=== PATIENT | female | born 1980 | race Caucasian/White ===

== ENCOUNTER 2018-12-04 12:36 | Emergency (ER) | payer SELFPAY ==
[2018-12-04] MEDS ORDERED: ONDANSETRON 4 MG/2 ML VIAL IVP ONE (13:07)
[2018-12-04] MEDS ORDERED: KETOROLAC 30 MG/1 ML SDV IVP ONE (13:07)
[2018-12-04] MEDS ORDERED: NS 1,000 ML IV ONE (13:07)
--- NOTE | 2018-12-04 13:07 | EDPHY ---
H & P Stated Complaint: bilat flank pain/burning freq nausea Source: Patient Exam Limitations: No limitations - Personal History LMP (Females 10-55): Hysterectomy Current Tetanus Diphtheria and Acellular Pertussis (TDAP): Yes - Medical/Surgical History Hx Asthma: No Hx Chronic Respiratory Disease: No Hx Diabetes: No Hx Cardiac Disease: No Hx Renal Disease: No Hx Cirrhosis: No Hx Alcoholism: No Hx HIV/AIDS: No Hx Splenectomy or Spleen Trauma: No Other PMH: hysterectomy pyelonephritis - Social History Smoking Status: Never smoked Time Seen by Provider: 12/04/18 12:59 HPI/ROS: HPI: This is a 38-year-old female who presents with Chief Complaint: bilateral flank pain/urinary burning freq/nausea Location: Flank Quality: Pain Duration: 3-4 days Signs and Symptoms: no fever, + nausea, no vomiting, no hematemesis, no blood in stool, no abdominal bloating, no diarrhea, no back pain, + urinary burning, + urinary frequency, no vaginal bleeding/discharge, no indigestion, no chest pain, no shortness of breath Timing: Slowly worsening Severity: Moderate Context: Patient presents at the urging of her primary care provider for complaints of urinary frequency and burning for the last 10 days and concern for pyelonephritis. Patient reports that she has bilateral flank pain, malaise , nausea. She feels the same way that she did when she had her previous " kidney infection." Able to eat and drink without any difficulty. Took Diflucan 1 week ago. No antibiotics in the last 3 months. Modifying Factors: Taking azo since Tuesday Comment: ROS: A comprehensive 10 system review of systems is otherwise negative aside from elements mentioned in the history of present illness. MEDICAL/SURGICAL/SOCIAL HISTORY: Medical history: Recurrent urinary tract infections, pyelonephritis, candidiasis vaginitis, postmenopausal Surgical history: Hysterectomy Social history: Has 5 living children. Family history noncontributory. CONSTITUTIONAL: Extremely well-appearing adult white female, awake and alert, no obvious distress HEENT: Atraumatic and normocephalic, PERRL, EOMI. Nares patent; no rhinorrhea; no nasal mucosal edema. Tympanic membranes clear. Oropharynx clear, no exudate and moist pink mucosa. Airway patent. No lymphadenopathy. No meningismus. Cardiovascular: Normal S1/S2, regular rate, regular rhythm, without murmur rub or gallop. PULMONARY/CHEST: Symmetrical and nontender. Clear to auscultation bilaterally. Good air movement. No accessory muscle usage. ABDOMEN: Soft, nondistended, nontender, no rebound, no guarding, no peritoneal signs, no masses or organomegaly. No CVAT. EXTREMITIES: 2/2 pulses, strength 5/5, no deformities, no clubbing, no cyanosis or edema. NEUROLOGICAL: no focal neuro deficits. GCS 15. SKIN: Warm and dry, no erythema. no rash. Good capillary refill. (Lupe Gudino) Constitutional: Initial Vital Signs Temperature (C) 36.6 C 12/04/18 12:40 Heart Rate 60 12/04/18 12:40 Respiratory Rate 18 12/04/18 12:40 Blood Pressure 110/67 12/04/18 12:40 O2 Sat (%) 99 12/04/18 12:40 O2 Delivery Mode Room Air Allergies/Adverse Reactions: morphine Allergy (Verified 12/04/18 12:39) nitrofurantoin [From Macrobid] Allergy (Verified 12/04/18 12:39) Home Medications: Medication Instructions Recorded Azo Urinary Pain Relief 12/04/18 Ciprofloxacin [Cipro] 500 mg PO BID 10 Days #20 tab 12/04/18 Fluconazole [Diflucan (*)] 150 mg PO ONCE #1 tab 12/04/18 Ondansetron Odt [Zofran Odt 4 mg 4 mg PO Q4 PRN #12 tab 12/04/18 (*)] Medical Decision Making - Diagnostics Imaging Results: Imaging Impressions Abdomen/Pelvis Ultrasound 12/04/18 13:08 Impression: 1. Trace prevoid pelvicaliectasis on the right which resolved following voiding. No evidence of obstructive hydronephrosis. Lupe Gudino was notified of these findings by telephone at 2:31 PM on 12/04/2018 ED Course/Re-evaluation: Vital signs reviewed and stable upon arrival. No systemic signs. IV access, laboratory studies, urinalysis, retroperitoneal ultrasound ordered Given 1 L normal saline, IV Zofran 4 mg 1345: Urinalysis shows positive nitrates, 1+ LE, 50-100 WBCs and; 1+ bacteria; sent for urine culture; given 1 g Rocephin 1348: Laboratory studies show WBC of 11 K with left shift. Creatinine 0.6 No signs of anemia/platelet dysfunction/ROSALBA/elevated LFTs/electrolyte imbalance/ pancreatitis/. 1434: Called by Radiologist, Dr. Donahue, who reports retroperitoneal ultrasound shows trace right hydronephrosis that resolves postvoid but no signs of abscess. Discussion with patient that I recommend admission for IV antibiotics, IV fluids until urine culture results but she politely declines. She has no signs of sepsis, tolerating p.o. and is of healthy immunocompetent patient. Given a prescription for Cipro, Diflucan x1 and Zofran as needed Patient understands that she is to return if symptoms are not improving over the next 2-3 days. This patient was seen under the supervision of my secondary supervising physician. I evaluated and cared for this patient with attending. (Lupe Gudino) I did not see this patient while she was in the emergency department. However her care was discussed with the PA while the patient was in the department. I agree with treatment plan and management (Raul Reed) Differential Diagnosis: Abdominal pain in a female including but not limited to ovarian cyst, pelvic inflammatory disease, ovarian torsion, urinary tract infection, and appendicitis. (Lupe Gudino) - Data Points Laboratory Results: Laboratory Results 12/04/18 13:20 12/04/18 13:20 12/04/18 12/04/18 12/04/18 13:20 13:20 13:20 WBC 10.87 10^3/uL H 10^3/uL (3.80-9.50) RBC 4.38 10^6/uL 10^6/uL (4.18-5.33) Hgb 13.5 g/dL g/dL (12.6-16.3) Hct 38.9 % % (38.0-47.0) MCV 88.8 fL fL (81.5-99.8) MCH 30.8 pg pg (27.9-34.1) MCHC 34.7 g/dL g/dL (32.4-36.7) RDW 12.9 % % (11.5-15.2) Plt Count 250 10^3/uL 10^3/uL (150-400) MPV 10.3 fL fL (8.7-11.7) Neut % (Auto) 71.3 % % (39.3-74.2) Lymph % (Auto) 20.6 % % (15.0-45.0) [place] % (Auto) 5.9 % % (4.5-13.0) Eos % (Auto) 1.4 % % (0.6-7.6) Baso % (Auto) 0.5 % % (0.3-1.7) Nucleat RBC Rel Count 0.0 % % (0.0-0.2) Absolute Neuts (auto) 7.76 10^3/uL H 10^3/uL (1.70-6.50) Absolute Lymphs (auto) 2.24 10^3/uL 10^3/uL (1.00-3.00) Absolute Monos (auto) 0.64 10^3/uL 10^3/uL (0.30-0.80) Absolute Eos (auto) 0.15 10^3/uL 10^3/uL (0.03-0.40) Absolute Basos (auto) 0.05 10^3/uL 10^3/uL (0.02-0.10) Absolute Nucleated RBC 0.00 10^3/uL 10^3/uL (0-0.01) Immature Gran % 0.3 % % (0.0-1.1) Immature Gran # 0.03 10^3/uL 10^3/uL (0.00-0.10) Sodium 137 mEq/L mEq/L (135-145) Potassium 3.8 mEq/L mEq/L (3.5-5.2) Chloride 103 mEq/L mEq/L (97-110) Carbon Dioxide 24 mEq/l mEq/l (22-31) Anion Gap 10 mEq/L mEq/L (6-14) BUN 11 mg/dL mg/dL (7-23) Creatinine 0.6 mg/dL mg/dL (0.6-1.0) Estimated GFR > 60 Glucose 84 mg/dL mg/dL (70-100) Calcium 9.0 mg/dL mg/dL (8.5-10.4) Total Bilirubin 0.6 mg/dL mg/dL (0.1-1.4) Conjugated Bilirubin 0.0 mg/dL mg/dL (0.0-0.5) Unconjugated Bilirubin 0.6 mg/dL mg/dL (0.0-1.1) AST 15 IU/L IU/L (14-46) ALT 16 IU/L IU/L (9-52) Alkaline Phosphatase 51 IU/L IU/L (38-126) Total Protein 6.4 g/dL g/dL (6.3-8.2) Albumin 4.1 g/dL g/dL (3.5-5.0) Lipase 36 IU/L IU/L (23-300) Beta HCG, Qual NEGATIVE Urine Color Urine Appearance Urine pH Ur Specific Oxly Urine Protein Urine Ketones Urine Blood Urine Nitrate Urine Bilirubin Urine Urobilinogen Ur Leukocyte Esterase Urine RBC Urine WBC Ur Epithelial Cells Urine Bacteria Urine Mucus Urine Glucose 12/04/18 12:55 WBC RBC Hgb Hct MCV MCH MCHC RDW Plt Count MPV Neut % (Auto) Lymph % (Auto) [place] % (Auto) Eos % (Auto) Baso % (Auto) Nucleat RBC Rel Count Absolute Neuts (auto) Absolute Lymphs (auto) Absolute Monos (auto) Absolute Eos (auto) Absolute Basos (auto) Absolute Nucleated RBC Immature Gran % Immature Gran # Sodium Potassium Chloride Carbon Dioxide Anion Gap BUN Creatinine Estimated GFR Glucose Calcium Total Bilirubin Conjugated Bilirubin Unconjugated Bilirubin AST ALT Alkaline Phosphatase Total Protein Albumin Lipase Beta HCG, Qual Urine Color MARQUEZ Urine Appearance HAZY Urine pH 6.0 (5.0-7.5) Ur Specific Oxly 1.016 (1.002-1.030) Urine Protein NEGATIVE (NEGATIVE) Urine Ketones TRACE H (NEGATIVE) Urine Blood 1+ H (NEGATIVE) Urine Nitrate POSITIVE H (NEGATIVE) Urine Bilirubin NEGATIVE (NEGATIVE) Urine Urobilinogen 4.0 EU H EU (0.2-1.0) Ur Leukocyte Esterase 1+ H (NEGATIVE) Urine RBC 15-25 /hpf H /hpf (0-3) Urine WBC 50-182 /hpf H /hpf (0-3) Ur Epithelial Cells TRACE /lpf /lpf (NONE-1+) Urine Bacteria 1+ /hpf H /hpf (NONE SEEN) Urine Mucus TRACE /lpf /lpf (NONE-1+) Urine Glucose NEGATIVE (NEGATIVE) Medications Given: Discontinued Medications Sodium Chloride (Ns) 1,000 mls @ 0 mls/hr IV EDNOW ONE; Wide Open PRN Reason: Protocol Stop: 12/04/18 13:08 Last Admin: 12/04/18 13:07 Dose: 1,000 mls Ceftriaxone Sodium/Dextrose (Rocephin 1 Gm (Premix)) 50 mls @ 100 mls/hr IV EDNOW ONE PRN Reason: Protocol Stop: 12/04/18 14:16 Last Admin: 12/04/18 14:08 Dose: 50 mls Ketorolac Tromethamine (Toradol) 30 mg IVP EDNOW ONE Stop: 12/04/18 13:08 Last Admin: 12/04/18 14:13 Dose: Not Given Ondansetron HCl (Zofran) 4 mg IVP EDNOW ONE Stop: 12/04/18 13:08 Last Admin: 12/04/18 14:12 Dose: Not Given Departure - Departure Disposition: Home, Routine, Self-Care Clinical Impression: Acute pyelonephritis Condition: Good Instructions: Kidney Infection (ED) Additional Instructions: Consume a minimum of 8-10 glasses of water or electrolyte fluid replacement drinks that include Gatorade, Powerade, Pedialyte. Take antibiotic as directed. Do not skip a dose. Take Zofran 1 tab every 4 hours as needed for nausea, vomiting. Take Diflucan x1 as needed for vaginal yeast infection. Return to the Emergency Room if symptoms do not resolve in the next 72 hours, you spike a fever > 102 F, or experience intractable abdominal pain/nausea/ vomiting. Referrals: MARVA LARSON [Primary Care Provider] - 3-4 days, if not improved Prescriptions: Ciprofloxacin [Cipro] 500 mg PO BID 10 Days #20 tab Fluconazole [Diflucan (*)] 150 mg PO ONCE #1 tab Ondansetron Odt [Zofran Odt 4 mg (*)] 4 mg PO Q4 PRN #12 tab PRN Reason: Nausea/Vomiting, Use 1st
[2018-12-04 13:36] LABS: PLATELET COUNT 250 10^3/uL (150-400)
[2018-12-04 14:48] VITALS: BP 115/68
== END 2018-12-04 14:48 | disposition home or self-care (01) ==
DX: N10 Acute pyelonephritis (principal); E86.9 Volume depletion, unspecified
CPT/HCPCS: 96365; J0696